=== PATIENT | female | born 1980 | race Caucasian/White ===

== ENCOUNTER 2017-12-31 14:21 | Emergency (ER) | payer OTHER ==
[~2017-12-31] VITALS: Ht 182.9 cm; Wt 95.1 kg
[2017-12-31] MEDS ORDERED: VENTOLIN HFA18 GM IH (16:01)
[2017-12-31 17:03] VITALS: BP 123/73
== END 2017-12-31 17:06 | disposition home or self-care (01) ==
LOC: EME 14:21
DX: J06.9 Acute upper respiratory infection, unspecified (principal); H92.02 Otalgia, left ear; F17.200 Nicotine dependence, unspecified, uncomplicated; Z90.49 Acquired absence of other specified parts of digestive tract
CPT/HCPCS: 71046; 94640; 99281; 99284

== ENCOUNTER 2018-02-14 17:59 | Emergency (ER) | payer OTHER ==
[~2018-02-14] VITALS: Ht 182.9 cm; Wt 99.6 kg
[~2018-02-14 17:59] MED LIST: VENTOLIN HFA18 GM IH
[2018-02-14] MEDS ORDERED: PEN-VEE K,VEET500 MG PO (20:11)
[2018-02-14] MEDS ORDERED: MOTRIN800 MG PO (20:11)
[2018-02-14 20:47] VITALS: BP 121/86
== END 2018-02-14 20:48 | disposition home or self-care (01) ==
LOC: RME 17:59 → EME 17:59 → RME 20:48
DX: K08.89 Other specified disorders of teeth and supporting structures (principal); F31.9 Bipolar disorder, unspecified; F41.9 Anxiety disorder, unspecified; F32.9 Major depressive disorder, single episode, unspecified; F90.9 Attention-deficit hyperactivity disorder, unspecified type; F17.200 Nicotine dependence, unspecified, uncomplicated; Z87.442 Personal history of urinary calculi; Z90.49 Acquired absence of other specified parts of digestive tract
CPT/HCPCS: 99281; 99284

== ENCOUNTER 2018-03-18 16:39 | Emergency (ER) | payer OTHER ==
[~2018-03-18] VITALS: Ht 182.9 cm; Wt 106.0 kg
[~2018-03-18 16:39] MED LIST changes: +MOTRIN800 MG PO; +PEN-VEE K,VEET500 MG PO
[2018-03-18 17:43] LABS: APPEARANCE CLEAR ((CLEAR)); BILIRUBIN NEGATIVE; BLOOD NEGATIVE; COLOR YELLOW ((YELLOW)); GLUCOSE (STRIP) NEGATIVE; KETONES NEGATIVE; LEUKOCYTES TRACE; NITRITE NEGATIVE; PROTEIN (STRIP) 30; SPECIFIC GRAVITY 1.028 (1.000-1.030)
[2018-03-18 17:49] LABS: BACTERIA NONE SEEN /HPF; EPITHELIAL CELLS RARE /HPF; HYALINE CASTS 0-5 /LPF; MUCUS TRACE /LPF; RED BLOOD CELLS 0-5 /HPF (0-5); WHITE BLOOD CELLS 0-5 /HPF (0-5)
[2018-03-18] MEDS ORDERED: ROBAXIN750 MG PO (18:11)
[2018-03-18] MEDS ORDERED: MEDROL DOSEPAK4 MG PO (18:11)
[2018-03-18] MEDS ORDERED: LIDODERM 5% P1 PATCH TD (18:11)
[2018-03-18] MEDS ORDERED: MOTRIN800 MG PO ×2 (18:25→18:26)
[2018-03-18 18:33] VITALS: BP 118/69
== END 2018-03-18 18:34 | disposition home or self-care (01) ==
LOC: RME 16:39 → EME 16:39 → RME 18:34
PROVIDERS: Nurse Practitioner Family
DX: M54.16 Radiculopathy, lumbar region (principal); M43.17 Spondylolisthesis, lumbosacral region; F17.200 Nicotine dependence, unspecified, uncomplicated; Z87.442 Personal history of urinary calculi; Z90.49 Acquired absence of other specified parts of digestive tract; Z98.51 Tubal ligation status
CPT/HCPCS: 72100; 81003; 84702; 99281; 99284; J7512